=== PATIENT | male | born 1980 | race Caucasian/White ===

== ENCOUNTER 2024-05-13 13:45 | Inpatient (IN) | payer MEDICARE, MEDICAID ==
[~2024-05-13] VITALS: Ht 177.8 cm; Wt 94.0 kg
[~2024-05-13 13:45] MED LIST: DIVA-112 PO; QUET300T19 PO
[2024-05-13] MEDS: DiphenhydrAMINE HCL 50 MG/ML VIAL IM ONE ×2 (14:44→23:52)
[2024-05-13] MEDS: LORazepam 2 MG/ML VIAL IM ONE ×2 (14:44→23:52)
[2024-05-13] MEDS: HALOPERIDOL LACTATE 5 MG/ML VIAL IM ONE (14:45)
[2024-05-13 16:57] LABS: COVID AG,FIA SOURCE NASAL SWAB
[2024-05-13 17:18] LABS: SARS-COV2 (COVID) ANTIGEN,FIA Negative (Negative)
[2024-05-13] MEDS: ZIPRASIDONE MESYLATE 20 MG/VIAL IM ONE ×2 (18:10→23:51)
[2024-05-13 18:47] LABS: PH,URINE DRUG SCREEN 6.5 (5.0-8.0)
[2024-05-13 18:54] LABS: AMPHET/METH SCREEN,URINE NEGATIVE (NEGATIVE); BARBITURATE SCREEN, URINE NEGATIVE (NEGATIVE); BENZODIAZEPINES SCREEN,URINE NEGATIVE (NEGATIVE); CANNABINOID SCREEN,URINE NEGATIVE (NEGATIVE); COCAINE SCREEN,URINE NEGATIVE (NEGATIVE); METHADONE SCREEN, URINE NEGATIVE (NEGATIVE); OPIATE SCREEN,URINE NEGATIVE (NEGATIVE); PHENCYCLIDINE SCREEN,URINE NEGATIVE (NEGATIVE)
[2024-05-13 18:55] LABS: ALCOHOL, URINE DRUG SCREEN NEGATIVE (NEGATIVE)
[2024-05-13 19:59] LABS: BASOPHILS % (AUTO) 0.3 % (0.0-2.0); HEMATOCRIT 46.6 % (41-53); HEMOGLOBIN 15.2 g/dL (13.5-17.5); LYMPHOCYTES # (AUTO) 1.4 K/uL (1.0-4.8); LYMPHOCYTES % (AUTO) 20.4 % (22.0-44.0); MEAN CORPUSCULAR HGB CONC 32.7 G/dL (31.0-37.0); MEAN CORPUSCULAR VOLUME 95 fL (80-100); MONOCYTES # (AUTO) 0.7 K/uL (0.1-1.0); NEUTROPHILS # (AUTO) 4.5 K/uL (1.8-7.7); NEUTROPHILS % (AUTO) 67.3 % (40.0-70.0); PLATELET COUNT (AUTO) 210 K/uL (150-450); RED BLOOD CELL COUNT(AUTO) 4.91 MIL/uL (4.50-5.90); RED CELL DISTRIBUTION WIDTH 13.6 % (11.5-14.5); WHITE BLOOD COUNT (AUTO) 6.7 K/uL (4.5-11.0)
[2024-05-13 20:01] LABS: ANION GAP 10 mmol/L (8-16); CALCIUM, TOTAL 9.2 mg/dL (8.8-10.5); CARBON DIOXIDE 27 mmol/L (22-29); CHLORIDE 103 mmol/L (98-107); CREATININE 0.99 mg/dL (0.60-1.30); GLOMERULAR FILTR. RATE CALC > 60 mL/min (>60); GLUCOSE,RANDOM 85 mg/dL (70-110); POTASSIUM 3.9 mmol/L (3.5-5.1); SODIUM SERUM 140 mmol/L (136-145); UREA NITROGEN, BLOOD 8 mg/dL (7-18)
[2024-05-13 20:07] LABS: ALCOHOL, BLOOD (SERUM) < 3 mg/dL (0-10)
[2024-05-13] MEDS ORDERED: ChlorproMAZINE HCL 50 MG/2 ML AMP ONE (23:39)
[2024-05-14 00:42] VITALS: BP 128/81; PULSE 109; RESP 18; TEMP 97; O2SAT 95
[2024-05-14] MEDS: ZOLPIDEM TARTRATE 10 MG TABLET PO PRN (00:59)
[2024-05-14] MEDS: INFLUENZA VIRUS VACCINE TVS (6MO+) 2024-25/PF 45 MCG/0.5 ML SYRINGE IM. ONE (03:01)
[2024-05-14] MEDS: LORazepam 2 MG TABLET PO PRN (04:08)
[2024-05-14] MEDS ORDERED: MAG HYDROX/ALUMINUM HYD/SIMETH ES 30 ML SUSPENSION UDCUP PO PRN (07:15)
[2024-05-14] MEDS ORDERED: ALBUTEROL SULFATE HFA 90 MCG/PUFF 8 GM INHALER IH PRN (07:15)
[2024-05-14] MEDS ORDERED: ONDANSETRON 4 MG TABLET PO PRN (07:15)
[2024-05-14] MEDS ORDERED: GuaiFENesin/D-METHORPHAN [SUGAR-FREE] 200-20MG/10 ML SYRUP UDCUP PO PRN (07:15)
[2024-05-14] MEDS ORDERED: IBUPROFEN 400 MG TABLET PO PRN (07:15)
[2024-05-14] MEDS ORDERED: CloNIDine HCL 0.1 MG TABLET PO PRN (07:15)
[2024-05-14] MEDS ORDERED: MAGNESIUM HYDROXIDE SUSPENSION 30 ML UDCUP PO PRN (07:15)
[2024-05-14] MEDS ORDERED: PETROLATUM,WHITE 28 GM JELLY TP PRN (07:15)
[2024-05-14] MEDS ORDERED: LOPERAMIDE HCL 2 MG CAPSULE PO PRN (07:15)
[2024-05-14] MEDS ORDERED: DOCUSATE SODIUM 100 MG CAPSULE PO PRN (07:15)
[2024-05-14 08:11] VITALS: RESP 18
[2024-05-14] MEDS: OLANZapine 5 MG TABLET PO SCH (16:03)
[2024-05-14] MEDS: LITHIUM CARBONATE 300 MG CAPSULE PO SCH (16:03)
[2024-05-14] MEDS: NICOTINE 14 MG/24 HOUR PATCH TD PRN (17:46)
[2024-05-14 22:50] VITALS: BP 114/77; PULSE 95; RESP 17; TEMP 97.9
[2024-05-15] MEDS ORDERED: ACETAMINOPHEN 325 MG TABLET PO PRN (06:15)
[2024-05-15] MEDS ORDERED: CloNIDine HCL 0.1 MG TABLET PO PRN (06:15)
[2024-05-15] MEDS ORDERED: DOCUSATE SODIUM 100 MG CAPSULE PO PRN (06:15)
[2024-05-15] MEDS ORDERED: IBUPROFEN 400 MG TABLET PO PRN (06:15)
[2024-05-15] MEDS ORDERED: PETROLATUM,WHITE 28 GM JELLY TP PRN (06:15)
[2024-05-15] MEDS ORDERED: ALBUTEROL SULFATE HFA 90 MCG/PUFF 8 GM INHALER IH PRN (06:15)
[2024-05-15] MEDS ORDERED: MAGNESIUM HYDROXIDE SUSPENSION 30 ML UDCUP PO PRN (06:15)
[2024-05-15] MEDS ORDERED: ONDANSETRON 4 MG TABLET PO PRN (06:15)
[2024-05-15] MEDS ORDERED: LOPERAMIDE HCL 2 MG CAPSULE PO PRN (06:15)
[2024-05-15] MEDS ORDERED: NICOTINE 14 MG/24 HOUR PATCH TD PRN (06:15)
[2024-05-15] MEDS ORDERED: GuaiFENesin/D-METHORPHAN [SUGAR-FREE] 200-20MG/10 ML SYRUP UDCUP PO PRN (06:15)
[2024-05-15] MEDS ORDERED: MAG HYDROX/ALUMINUM HYD/SIMETH ES 30 ML SUSPENSION UDCUP PO PRN (06:15)
[2024-05-15 08:42] LABS: CHOL/HDL RATIO 2.8 (4.2-7.3); FREE T4 (FREE THYROXINE) 1.07 ng/dL (0.76-1.46); THYROID STIMULATING HORMONE 1.71 uIU/mL (0.36-3.74)
[2024-05-15 11:02] VITALS: BP 124/84; PULSE 78; RESP 18; TEMP 96.8; O2SAT 96
[2024-05-15 20:10] VITALS: BP 116/75; PULSE 92; RESP 17; TEMP 97.5; O2SAT 96
[2024-05-15 22:05] VITALS: BP 116/75; PULSE 92; RESP 18; TEMP 97.5; O2SAT 96
[2024-05-16 10:14] LABS: HEMOGLOBIN A1C 5.1 % (3.8-5.6)
[2024-05-16 10:18] LABS: THYROID STIMULATING HORMONE 0.93 uIU/mL (0.36-3.74)
[2024-05-16 10:27] VITALS: BP 115/72; PULSE 88; PULSE 98; RESP 17; TEMP 97.7; O2SAT 98
[2024-05-16 20:15] VITALS: BP 109/65; PULSE 74; RESP 18; TEMP 97.6; O2SAT 97
[2024-05-17 05:08] LABS: HEPATITIS C AB (EIA) Reactive (Non Reactive)
[2024-05-17 08:32] VITALS: BP 100/61; PULSE 70; RESP 18; TEMP 97.4; O2SAT 96
[2024-05-17 21:23] VITALS: BP 120/80; PULSE 77; RESP 17; TEMP 98.4; O2SAT 100
[2024-05-18 08:12] VITALS: BP 125/76; PULSE 74; RESP 15; TEMP 98; O2SAT 98
[2024-05-18 20:09] VITALS: BP 103/69; PULSE 76; RESP 16; TEMP 97.1; O2SAT 96
[2024-05-19 20:00] VITALS: BP 118/77; PULSE 77; RESP 17; TEMP 97.3; O2SAT 99
[2024-05-20 08:27] VITALS: BP 93/50; PULSE 72; RESP 18; TEMP 97.8; O2SAT 95
[2024-05-20] MEDS: LITHIUM CARBONATE 600 MG CAPSULE PO SCH (08:32)
[2024-05-20 13:51] VITALS: BP 105/74; PULSE 86; RESP 18; TEMP 97.8; O2SAT 95
[2024-05-20 19:06] LABS: HEPATITIS C RT-PCR,QNT HCV Not Detected IU/mL
[2024-05-20 20:32] VITALS: BP 107/76; PULSE 88; RESP 16; TEMP 97.7; O2SAT 97
[2024-05-21 08:45] VITALS: BP 99/64; PULSE 67; RESP 18; TEMP 97.6; O2SAT 97
[2024-05-21 21:18] VITALS: BP 105/72; PULSE 73; RESP 16; TEMP 97.7; O2SAT 96
[2024-05-22 08:12] VITALS: BP 104/61; PULSE 68; RESP 17; TEMP 97.9; O2SAT 98
[2024-05-22 20:40] VITALS: BP 111/76; PULSE 78; RESP 16; TEMP 98.9; O2SAT 96
[2024-05-23 07:52] VITALS: BP 93/58; PULSE 58; RESP 17; TEMP 96.8; O2SAT 94
[2024-05-23 08:00] VITALS: RESP 19
[2024-05-23] MEDS: OLANZapine 7.5 MG TABLET PO SCH (16:23)
[2024-05-23 20:07] VITALS: BP 99/64; PULSE 71; RESP 16; TEMP 97.1
[2024-05-24 08:12] VITALS: BP 105/67; PULSE 71; RESP 18; TEMP 97.3; O2SAT 98
[2024-05-24 20:25] VITALS: BP 109/78; PULSE 86; RESP 19; TEMP 97.8; O2SAT 98
[2024-05-25 08:09] VITALS: BP 106/78; PULSE 62; RESP 18; TEMP 98; O2SAT 96
[2024-05-25 20:03] VITALS: BP 105/64; PULSE 79; RESP 17; TEMP 97
[2024-05-26 08:14] VITALS: BP 107/67; PULSE 73; RESP 18; TEMP 97.4; O2SAT 95
[2024-05-26 20:01] VITALS: BP 109/73; PULSE 68; RESP 16; TEMP 97.1; O2SAT 95
[2024-05-27 08:25] VITALS: BP 106/65; PULSE 62; RESP 17; TEMP 97.2; O2SAT 95
[2024-05-27 20:25] VITALS: BP 110/64; PULSE 67; RESP 17; TEMP 97.5; O2SAT 97
[2024-05-28 09:22] VITALS: BP 108/56; PULSE 72; RESP 16; TEMP 97.8; O2SAT 97
[2024-05-28 21:11] VITALS: BP 119/71; PULSE 89; RESP 18; TEMP 97.3; O2SAT 99
[2024-05-29 08:53] VITALS: BP 120/71; PULSE 80; RESP 18; TEMP 97.4; O2SAT 99
[2024-05-29 20:36] VITALS: BP 131/71; PULSE 81; RESP 18; TEMP 98; O2SAT 99
[2024-05-30 08:24] VITALS: BP 106/63; PULSE 60; RESP 18; TEMP 97.7; O2SAT 96
[2024-05-30] MEDS: HALOPERIDOL 5 MG TABLET PO PRN (16:04)
[2024-05-30 20:33] VITALS: BP 126/71; PULSE 71; RESP 18; TEMP 97.5; O2SAT 99
[2024-05-30] MEDS: MELATONIN 5 MG TABLET PO SCH (20:33)
[2024-05-31 08:44] VITALS: BP 130/72; PULSE 80; RESP 18; TEMP 97.9; O2SAT 99
[2024-05-31 20:18] VITALS: BP 127/91; PULSE 73; RESP 18; TEMP 96.2; O2SAT 96
[2024-05-31 21:19] VITALS: RESP 18
[2024-05-31] MEDS: ACETAMINOPHEN 325 MG TABLET PO PRN (21:19)
[2024-05-31 22:19] VITALS: RESP 18
[2024-06-01 08:12] VITALS: BP 102/61; PULSE 61; RESP 16; TEMP 97.4; O2SAT 96
[2024-06-01 20:30] VITALS: BP 113/80; PULSE 77; RESP 18; TEMP 97.8; O2SAT 97
[2024-06-02 08:15] VITALS: BP 108/69; PULSE 65; RESP 19; TEMP 98; O2SAT 96
[2024-06-02 20:29] VITALS: BP 111/63; PULSE 70; RESP 18; TEMP 97.5
[2024-06-03 09:02] VITALS: BP 117/73; PULSE 102; RESP 18; TEMP 97.7; O2SAT 96
[2024-06-03] MEDS ORDERED: MELA5TAB40 PO (14:45)
[2024-06-03] MEDS ORDERED: OLAN7.5T22 PO (14:45)
[2024-06-03] MEDS ORDERED: LITH600C PO (14:45)
== END 2024-06-03 17:25 | disposition home or self-care (01) | DRG 885 ==
LOC: EMS 13:45 → B2X 05-14 00:18
PROVIDERS: ADMIT Psychiatry & Neurology Child & Adolescent Psychiatry; ATTEND Psychiatry & Neurology Child & Adolescent Psychiatry
PROC: GZHZZZZ Group Psychotherapy (ICD-10-PCS; principal; 2024-05-14)
PROC: GZ52ZZZ Individual Psychotherapy, Cognitive (ICD-10-PCS; 2024-05-14)
PROC: GZ56ZZZ Individual Psychotherapy, Supportive (ICD-10-PCS; 2024-05-14)
DX: F25.0 Schizoaffective disorder, bipolar type (principal); G47.00 Insomnia, unspecified; F41.9 Anxiety disorder, unspecified; F19.10 Other psychoactive substance abuse, uncomplicated; I10 Essential (primary) hypertension; Z20.822 Contact with and (suspected) exposure to COVID-19; Z79.899 Other long term (current) drug therapy; Z88.8 Allergy status to other drugs, medicaments and biological substances
CPT/HCPCS: 80048; 80061; 80178; 80307; 83036; 84439; 84443; 85025; 86803; 87340; 87522; G0480; J1200; J1630; J2060; J3230; J3486